=== PATIENT | female | born 1965 | race Hispanic/Latino ===

== ENCOUNTER 2018-10-01 07:32 | Day surgery (SDC) | payer MEDICAID ==
--- NOTE | 2018-10-01 08:48 | Anesthesia Consultation ---
Anesthesia Consult and Med Hx Date of service: 10/01/18 - Airway Anesthetic Teeth Evaluation: Good (broken off tooth right upper back) ROM Head & Neck: Adequate Mental/Hyoid Distance: Adequate Mallampati Class: Class II - Pre-Operative Health Status ASA Pre-Surgery Classification: ASA2 Proposed Anesthetic Plan: MAC - Pulmonary Hx Smoking: Yes (current smoker x 38 years) Hx Asthma: Yes
--- NOTE | 2018-10-01 08:49 | Anesthesia Day of Surgery ---
Anesthesia Day of Surgery - Day of Surgery Patient Examined: Yes Patient H&P Reviewed: Yes Patient is NPO: Yes
[2018-10-01] MEDS ORDERED: NACL 0.9% 1000 ML 1,000 ML IV SCH (09:00)
[2018-10-01] MEDS ORDERED: DIPRIVAN 10 MG/ML IV ONE ×2 (09:26)
[2018-10-01] MEDS ORDERED: XYLOCAINE 2% UROJET UR ONE (09:45)
[2018-10-01] MEDS ORDERED: XYLOCAINE 2% UROJET ONE (09:46)
[2018-10-01] MEDS ORDERED: XYLOCAINE MPF 2% ONE (10:00)
--- NOTE | 2018-10-01 10:02 | Procedure Note ---
Date of procedure: 10/01/18 Pre-op diagnosis: Hematochezia Post-op diagnosis: other (Hematochezia secondary to Moderate Internal Hemorrhoid s/p Banding x 3/ Moderate Left Colon and Transverse Colon diverticular Disease) Procedure: Colonoscopy/ Flex Sigmoidoscopy with Banding x3 Anesthesia: MAC Surgeon: RUDI KANG Estimated blood loss: minimal Pathology: none Condition: stable Disposition: same day (Encourage fiber intake after one week. Sitz bath twice daily for 7 days. Use over the counter anti-hemorrhoidal medication. Avoid aspirin and NSAID for 5 days and resume home medication and follow up in 1 to 2 weeks ([phone]).)
--- NOTE | 2018-10-01 10:16 | Operative Report ---
PROCEDURE: Colonoscopy. Thank you for the kind referral. INDICATION: This is a 53-year-old white female who has a family history of cancer. The patient's mother had uterine cancer. She has an underlying history of endometriosis as well as cholecystectomy and some mental health issues. Lately, she has been having some lower GI bleeding. Colonoscopy was done to assess for the source of the bleeding. DESCRIPTION OF PROCEDURE: The procedure was done after getting informed consent with MAC anesthesia. The patient states that she had a colonoscopy done about 10 years ago. Initial rectal exam was unremarkable. Instrument was passed through the rectum onto the cecum, which was identified with ileocecal valve and the appendiceal orifice. Visualization was fair. The scope was withdrawn to the hepatic flexure and then reintroduced to the cecum. No additional pathology was noted. The cecum, ascending colon showed normal mucosa. The distal transverse colon and the left colon showed extensive deep diverticular disease, but there were no stigmata of any bleeding at present and the rectum showed moderate internal hemorrhoid on the retroverted view, which may have been the cause of the patient's hematochezia. There were no biopsies done with the colonoscopy. During the colonoscopy, no bleeding associated with the colonoscopy procedure. ASSESSMENT: Hematochezia, possibly secondary to moderate internal hemorrhoids, extensive diverticular disease. No colon polyps noted. Plan is to encourage the patient to take fiber supplements, to do a flex sig and banding to treat the internal hemorrhoids which are the possible cause of the hematochezia. Have the patient avoid aspirin and aspirin-related products for the next few days and also advised the patient to take Sitz baths and follow up in the office in 1-2 weeks' time. The patient's procedure was done in the GI lab with assistance of anesthesia and in the presence and with the assistance of the GI lab team, which included RN, Marielle Stock, as well as a Ginna morocho. Again, there was no bleeding or complications associated with the procedure. [facility]# [id number] LEONELA/KEVIN
[2018-10-01 10:22] VITALS: BP 118/63
--- NOTE | 2018-10-01 10:35 | Operative Report ---
PROCEDURE: Flexible sigmoidoscopy with banding x3. Procedure was done at [facility] in the GI lab with assistance of the GI lab team, which included DELMIS Stock and bailee Chacko and with the assistance of anesthesia. Thank you for the kind referral. This is a 53-year-old white female with an underlying history of endometriosis status post cholecystectomy, family history of cancer, the patient's mother had uterine cancer. Colonoscopy was done to assess for hematochezia. It showed presence of moderate internal hemorrhoid, which was the possible cause of the hematochezia as well as moderate diverticular disease. A flex sig with banding was done after getting informed consent with the EGD scope with the banding apparatus mounted was introduced into the rectal vault and retroflexed. Three of the largest hemorrhoids were then suctioned into the suction channel and the bands were deployed. There was no to minimal bleeding associated with the procedure. No complications associated with the procedure. ASSESSMENT: Hematochezia secondary to moderate internal hemorrhoids, status post banding x 3. Plan is to have the patient to take sitz baths and follow up in the office in 1-2 weeks' time. Also, take hemorrhoidal medications as needed. Again, there was minimal to no bleeding associated with the procedure. No complications associated with the procedure. Procedure was done in the GI lab with assistance of the GI lab team and in the presence of Marielle BENITES and bailee Chacko and also with the assistance of anesthesia. JOB# [id number] LEONELA/KEVIN
== END 2018-10-01 07:33 | disposition home or self-care (01) ==
LOC: GIO 07:32
DX: K64.8 Other hemorrhoids (principal); K57.30 Diverticulosis of large intestine without perforation or abscess without bleeding; F17.210 Nicotine dependence, cigarettes, uncomplicated; J45.909 Unspecified asthma, uncomplicated; Z88.2 Allergy status to sulfonamides; Z88.8 Allergy status to other drugs, medicaments and biological substances; Z79.899 Other long term (current) drug therapy; Z91.041 Radiographic dye allergy status; Z90.49 Acquired absence of other specified parts of digestive tract; Z98.890 Other specified postprocedural states
CPT/HCPCS: 45378; 46221; 81025; J2704; J7030